=== PATIENT | female | born 1975 | race Caucasian/White ===

== ENCOUNTER 2021-03-29 06:19 | Emergency (ER) | payer MEDICAID ==
[~2021-03-29] VITALS: Ht 167.6 cm; Wt 94.0 kg
[2021-03-29] MEDS ORDERED: LEVETIRACETAM 1,000 MG in SODIUM CHLORIDE 0.9% 100 ML IV SCH (07:30)
[2021-03-29 07:54] LABS: BASOPHILS % 1.1 % (0.0-2.0); EOSINOPHILS % 4.2 % (0.0-5.0); HEMATOCRIT. 44.2 % (36.0-48.0); HEMOGLOBIN. 14.9 g/dL (12.0-16.0); LYMPHOCYTES % 27.4 % (20.0-50.0); MEAN CORPUSCULAR HEMOGLOBIN 31.4 pg (28.0-32.0); MEAN CORPUSCULAR VOLUME 93.3 fL (81.0-99.0); MEAN PLATELET VOLUME 6.8 fl (7.4-10.4); MONOCYTES % 6.9 % (2.0-8.0); NEUTROPHILS % 60.4 % (40.0-76.0); PLATELET 344 x1000/uL (130-400); RED BLOOD CELL COUNT 4.74 mill/uL (4.2-5.4)
[2021-03-29] MEDS ORDERED: LEVETIRACETAM 1000MG PREMIX 100 ML IV SCH (08:00)
[2021-03-29 08:06] LABS: CHLORIDE 107 mEq/L (98-107)
[2021-03-29 08:15] LABS: HCG SCREEN NEGATIVE
[2021-03-29] MEDS ORDERED: LEVE1000 MT (10:37)
[2021-03-29 10:50] VITALS: BP 134/85
== END 2021-03-29 11:00 | disposition home or self-care (01) ==
LOC: ER 06:19
DX: G40.909 Epilepsy, unspecified, not intractable, without status epilepticus (principal); S09.8XXA Other specified injuries of head, initial encounter; X58.XXXA Exposure to other specified factors, initial encounter; E11.9 Type 2 diabetes mellitus without complications; I10 Essential (primary) hypertension; Y93.89 Activity, other specified; Y92.89 Other specified places as the place of occurrence of the external cause
CPT/HCPCS: 36415; 80048; 84703; 85025; 93005; 96374; 99285; J1953